=== PATIENT | female | born 1980 | race African-American/Black ===

== ENCOUNTER 2016-09-08 18:29 | Emergency (ER) | payer OTHER ==
[~2016-09-08] VITALS: Ht 170.2 cm; Wt 104.3 kg
[2016-09-08] MEDS ORDERED: ZOFRAN ODT4 MG PO (21:21)
[2016-09-08 21:27] VITALS: BP 114/58
== END 2016-09-08 21:29 | disposition home or self-care (01) ==
LOC: ER 18:29
DX: J06.9 Acute upper respiratory infection, unspecified (principal); J45.909 Unspecified asthma, uncomplicated; F17.210 Nicotine dependence, cigarettes, uncomplicated; F10.99 Alcohol use, unspecified with unspecified alcohol-induced disorder

== ENCOUNTER 2019-03-29 20:06 | Emergency (ER) | payer OTHER ==
[~2019-03-29 20:06] MED LIST: ZOFRAN ODT4 MG PO
[2019-03-29 20:56] LABS: ABSOLUTE NEUTROPHILS 7.6 thou/uL (1.4-8.2); BASOPHILS 1.5 % (0.0-2.0); EOSINOPHILS 1.5 % (0.0-3.0); HEMATOCRIT 36.9 % (37.0-47.0); HEMOGLOBIN 11.6 gm/dL (12.0-15.0); LYMPHOCYTES 26.5 % (24.0-44.0); MCH 21.7 pg (26.0-34.0); MCHC 31.4 g/dL (28.0-37.0); MCV 69.3 fL (80.0-100.0); MONOCYTES 6.2 % (1.0-8.0); POLYS 64.3 % (36.0-66.0); RBC 5.32 mil/uL (4.20-5.00); RDW 20.8 % (10.5-14.5); WBC 11.9 thou/uL (4.0-11.0)
[2019-03-29 21:00] LABS: URINE BILIRUBIN NEGATIVE (Negative); URINE BLOOD NEGATIVE (Negative); URINE CLARITY CLEAR; URINE COLOR YELLOW; URINE GLUCOSE-RANDOM* 3+ (Negative); URINE KETONES 1+ (Negative); URINE LEUKOCYTES-REFLEX NEGATIVE (Negative); URINE NITRITE-REFLEX NEGATIVE (Negative); URINE PROTEIN (DIPSTICK) NEGATIVE (Negative); URINE UROBILINOGEN 0.2 E.U./dl (0.2-1.0)
[2019-03-29 21:04] LABS: CALCIUM 9.5 mg/dL (8.5-10.1); CREATININE 1.1 mg/dL (0.6-1.0); POTASSIUM 4.4 mmol/L (3.5-5.1)
[2019-03-29 21:27] LABS: ANISOCYTOSIS 2+; HYPOCHROMASIA 2+; MICROCYTES 2+; POLYCHROMASIA 1+
[2019-03-29 21:47] LABS: PLATELET COUNT 233 thou/uL (150-400)
[2019-03-29 23:11] VITALS: BP 141/86
== END 2019-03-29 23:13 | disposition home or self-care (01) ==
LOC: ER 20:06
PROVIDERS: Emergency Medicine
DX: E11.65 Type 2 diabetes mellitus with hyperglycemia (principal); J45.909 Unspecified asthma, uncomplicated; F17.210 Nicotine dependence, cigarettes, uncomplicated

== ENCOUNTER 2019-10-18 11:12 | Emergency (ER) | payer OTHER ==
[~2019-10-18] VITALS: Ht 152.4 cm; Wt 99.8 kg
[2019-10-18 11:54] LABS: ABSOLUTE NEUTROPHILS 6.9 thou/uL (1.4-8.2); BASOPHILS 0.7 % (0.0-2.0); EOSINOPHILS 0.9 % (0.0-3.0); HEMATOCRIT 31.9 % (37.0-47.0); LYMPHOCYTES 7.6 % (24.0-44.0); MCH 21.8 pg (26.0-34.0); MCHC 31.3 g/dL (28.0-37.0); MCV 69.7 fL (80.0-100.0); MONOCYTES 5.6 % (1.0-8.0); PLATELET COUNT 234 thou/uL (150-400); POLYS 85.2 % (36.0-66.0); RBC 4.57 mil/uL (4.20-5.00); RDW 19.6 % (10.5-14.5); WBC 8.1 thou/uL (4.0-11.0)
[2019-10-18 12:28] LABS: ANISOCYTOSIS 1+; HYPOCHROMASIA 2+; MICROCYTES 1+; PLATELET ESTIMATE NORMAL
[2019-10-18 12:38] VITALS: BP 167/80
[2019-10-18 12:54] LABS: CALCIUM 8.3 mg/dL (8.5-10.1); POTASSIUM 3.8 mmol/L (3.5-5.1)
[2019-10-18 13:00] LABS: ALBUMIN 3.2 g/dL (3.4-5.0); TOTAL BILIRUBIN 0.3 mg/dL (<0.1-1.0)
[2019-10-18] MEDS ORDERED: TAMIFLU75 MG PO (13:10)
[2019-10-18 16:24] LABS: URINE BILIRUBIN NEGATIVE (Negative); URINE BLOOD NEGATIVE (Negative); URINE CLARITY CLOUDY; URINE COLOR YELLOW; URINE GLUCOSE-RANDOM* NEGATIVE (Negative); URINE KETONES NEGATIVE (Negative); URINE LEUKOCYTES-REFLEX NEGATIVE (Negative); URINE NITRITE-REFLEX NEGATIVE (Negative); URINE PROTEIN (DIPSTICK) NEGATIVE (Negative); URINE UROBILINOGEN 0.2 E.U./dl (0.2-1.0)
== END 2019-10-18 13:26 | disposition home or self-care (01) ==
LOC: ER 11:12
PROVIDERS: Emergency Medicine
DX: R11.2 Nausea with vomiting, unspecified (principal); M54.5 Low back pain; R05 Cough; E10.9 Type 1 diabetes mellitus without complications; J45.909 Unspecified asthma, uncomplicated; F17.210 Nicotine dependence, cigarettes, uncomplicated; Z98.51 Tubal ligation status

== ENCOUNTER 2021-06-13 16:19 | Emergency (ER) | payer OTHER ==
[~2021-06-13] VITALS: Ht 149.9 cm; Wt 102.1 kg
[~2021-06-13 16:19] MED LIST changes: +TAMIFLU75 MG PO
[2021-06-13] MEDS ORDERED: MEDROLDOSEPACK PO (16:40)
[2021-06-13] MEDS ORDERED: TESSALON PERLE100 MG PO (16:40)
[2021-06-13 16:50] VITALS: BP 178/86
== END 2021-06-13 16:50 | disposition home or self-care (01) ==
LOC: ER 16:19
PROVIDERS: Nurse Practitioner
DX: J06.9 Acute upper respiratory infection, unspecified (principal); Z20.822 Contact with and (suspected) exposure to COVID-19; J45.909 Unspecified asthma, uncomplicated; E10.8 Type 1 diabetes mellitus with unspecified complications; F17.210 Nicotine dependence, cigarettes, uncomplicated; Z79.899 Other long term (current) drug therapy